=== PATIENT | female | born 1970 | race Caucasian/White ===

== ENCOUNTER 2021-01-01 15:56 | Emergency (ER) | payer MEDICAID, OTHER ==
[~2021-01-01] VITALS: Ht 157.5 cm; Wt 69.1 kg
[2021-01-01 15:56] VITALS: BP 0/0
[2021-01-01] MEDS ORDERED: CALCIUM CHLOR(10%) 100MG/ML 10ML SYRINGE IV ONE (15:57)
[2021-01-01] MEDS ORDERED: SODIUM BICARBONATE 8.4% INJ 50ML SYRINGE IV ONE (15:57)
[2021-01-01] MEDS ORDERED: NALOXONE HCL 1MG/ML 2ML SYRINGE IV ONE (15:57)
[2021-01-01] MEDS ORDERED: EPINEPHrine HCL 1 MG/10 ML SYRG IV ONE (15:57)
== END 2021-01-01 20:38 ==
LOC: ER 15:56 → EDBD 15:56 → ER 20:38
DX: I46.9 Cardiac arrest, cause unspecified (principal); J96.90 Respiratory failure, unspecified, unspecified whether with hypoxia or hypercapnia; R41.82 Altered mental status, unspecified
CPT/HCPCS: 31500; 92950; 99285; J0171; J2310